=== PATIENT | female | born 1940 | race Caucasian/White ===

== ENCOUNTER 2024-11-27 13:44 | Outpatient (CLI) | payer OTHER, SELFPAY ==
--- NOTE | ~2024-11-27 | XR_ITS ---
[id number] 11/27/2024 14:32 Indication: Posterior neck pain Procedure: 3 view cervical spine Comparison: No prior studies for comparison. Findings: Vertebral body heights are maintained. There is advanced multilevel uncinate and facet hype rtrophy. There is disc narrowing at C5-6 and C6-7. No prevertebral soft tissue swelling. Lung apices are unremarkable. There is atherosclerosis of the aorta. No acute fracture or traumatic malalignment. Odontoid process is normal. Lateral masses normally aligned. Impression: 1: Severe cervical spondylosis. Reviewed, dictated and finalized at location A. Impression: 1: Severe cervical spondylosis.
--- NOTE | ~2024-11-27 | XR_ITS ---
Thoracic spine: Clinical Indication: Posterior pain AP and lateral views were performed. Probable mild anterior wedging deformity of T9 and T11. There is advanced degenerative disc narrowing throughout the thoracic spine. Paravertebral soft tissues appear normal. 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 Probable mild anterior wedging deformities of T9 and T11. Reviewed, dictated and finalized at [facility]. 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 Probable mild anterior wedging deformities of T9 and T11.
--- OUTSIDE RECORDS SUMMARY | 2024-11-27 14:07 | XMS_ITS | CONTINUITY OF CARE DOCUMENT ---
Author Name paulette caldwell Address Unknown Organization [facility] Address [address] [address] [place] [address] Phone [phone] Care Team Providers Care Chief Risk Officer Name Role Phone Ny Palma MD Unavailable [phone] Ny Palma MD Unavailable [phone] INSURANCE PROVIDERS Payer name Policy type / Coverage type [place] red democrat ID [employer] Commercial ins[employer] ce company [employer] Commercial insuran ce company [place] [employer] [id number]
== END 2024-11-27 13:45 | disposition home or self-care (01) ==
DX: M47.814 Spondylosis without myelopathy or radiculopathy, thoracic region (principal); M47.812 Spondylosis without myelopathy or radiculopathy, cervical region
CPT/HCPCS: 72040; 72072